=== PATIENT | female | born 1960 | race Caucasian/White ===

== ENCOUNTER → 2017-03-28 | Outpatient (CLI) | payer BC | END | disposition home or self-care (01) | LOC: CFH 07:29 | PROVIDERS: ATTEND Nurse Practitioner Primary Care | DX: Z12.31 Encounter for screening mammogram for malignant neoplasm of breast (principal); M79.641 Pain in right hand; M79.642 Pain in left hand; K21.9 Gastro-esophageal reflux disease without esophagitis; R74.8 Abnormal levels of other serum enzymes; R73.01 Impaired fasting glucose; R53.83 Other fatigue; J45.909 Unspecified asthma, uncomplicated; G47.00 Insomnia, unspecified; E88.89 Other specified metabolic disorders | CPT/HCPCS: 77067 ==